=== PATIENT | male | born 1975 | race African-American/Black ===

== ENCOUNTER 2020-06-05 13:36 | Emergency (ER) | payer MEDICAID ==
[~2020-06-05] VITALS: Ht 172.7 cm; Wt 78.8 kg
[~2020-06-05 13:36] MED LIST: ALBU8.5H8
[2020-06-05] MEDS ORDERED: SODIUM CHLORIDE 0.9% 1,000 ML IV ONE (14:00)
[2020-06-05 14:35] LABS: BASOPHILS % (AUTO) 0.7 % (0.0-2.0); EOSINOPHILS % (AUTO) 1.5 % (1.0-6.0); HEMATOCRIT 28.7 % (41-53); HEMOGLOBIN 9.5 g/dL (13.5-17.5); LYMPHOCYTES # (AUTO) 2.7 K/uL (1.0-4.8); LYMPHOCYTES % (AUTO) 28.6 % (22.0-44.0); MEAN CORPUSCULAR HEMOGLOBIN 28.5 pg (26.0-34.0); MEAN CORPUSCULAR HGB CONC 33.2 G/dL (31.0-37.0); MEAN CORPUSCULAR VOLUME 86 fL (80-100); MONOCYTES # (AUTO) 0.9 K/uL (0.1-1.0); MONOCYTES % (AUTO) 9.7 % (2.0-9.0); NEUTROPHILS # (AUTO) 5.6 K/uL (1.8-7.7); NEUTROPHILS % (AUTO) 59.5 % (40.0-70.0); PLATELET COUNT (AUTO) 269 K/uL (150-450); RED BLOOD CELL COUNT(AUTO) 3.35 MIL/uL (4.50-5.90); RED CELL DISTRIBUTION WIDTH 15.2 % (11.5-14.5)
[2020-06-05 14:45] LABS: ANION GAP 10 mmol/L (8-16); CALCIUM, TOTAL 8.8 mg/dL (8.8-10.5); CARBON DIOXIDE 25 mmol/L (22-29); CHLORIDE 104 mmol/L (98-107); CREATININE 1.06 mg/dL (0.60-1.30); GLOMERULAR FILTR. RATE CALC > 60 mL/min (>60); GLUCOSE,RANDOM 123 mg/dL (70-110); POTASSIUM 3.7 mmol/L (3.5-5.1); SODIUM SERUM 139 mmol/L (136-145); UREA NITROGEN, BLOOD 15 mg/dL (7-18)
[2020-06-05 14:48] LABS: ALBUMIN 3.4 g/dL (3.4-5.0)
[2020-06-05 14:50] LABS: PROTHROMBIN TIME 10.5 SEC (9.4-11.6)
[2020-06-05 14:55] LABS: B-TYPE NATRIURETIC PEPTIDE 73 pg/mL (0-100)
[2020-06-05 14:59] LABS: AMMONIA 32 umol/L (11-32)
[2020-06-05 15:00] LABS: TROPONIN I < 0.02 ng/mL (0.00-0.05)
[2020-06-05 15:17] LABS: ALANINE AMINOTRANSFERASE 79 U/L (12-78); ALKALINE PHOSPHATASE 117 U/L (46-116); ASPARTATE AMINOTRANSFERASE 60 U/L (15-37); BILIRUBIN,TOTAL 0.7 mg/dL (0.1-1.0); CREATINE KINASE, TOTAL ONLY 169 U/L (39-308); LIPASE 186 U/L (73-393); TOTAL PROTEIN, SERUM 7.1 g/dL (6.4-8.2)
[2020-06-05 15:19] LABS: COVID AG,FIA SOURCE NASOPHARYNGEAL
[2020-06-05] MEDS ORDERED: IOVERSOL 350 MG/ML 100 ML VIAL ONE (16:53)
[2020-06-05] MEDS ORDERED: SODIUM CHLORIDE 0.9% 100 ML ONE (16:53)
[2020-06-05 17:35] LABS: APPEARANCE,URINE CLEAR (CLEAR); BILIRUBIN,URINE NEGATIVE (NEGATIVE); GLUCOSE, URINE (UA) NEGATIVE (NEGATIVE); KETONES,URINE NEGATIVE (NEGATIVE); LEUKOCYTE ESTERASE ,URINE NEGATIVE (NEGATIVE); NITRATE,URINE NEGATIVE (NEGATIVE); OCCULT BLOOD,URINE NEGATIVE (NEGATIVE); PH,URINE 7.5 (5.0-8.0); PROTEIN,URINE NEGATIVE (NEGATIVE)
[2020-06-05 17:41] LABS: AMPHET/METH SCREEN,URINE POSITIVE (NEGATIVE); BARBITURATE SCREEN, URINE NEGATIVE (NEGATIVE); BENZODIAZEPINES SCREEN,URINE NEGATIVE (NEGATIVE); CANNABINOID SCREEN,URINE NEGATIVE (NEGATIVE); COCAINE SCREEN,URINE NEGATIVE (NEGATIVE); METHADONE SCREEN, URINE NEGATIVE (NEGATIVE); OPIATE SCREEN,URINE NEGATIVE (NEGATIVE)
[2020-06-05 17:42] VITALS: BP 133/84
[2020-06-05 17:46] LABS: PHENCYCLIDINE SCREEN,URINE NEGATIVE (NEGATIVE)
== END 2020-06-05 19:07 | disposition left against medical advice (07) ==
LOC: EMS 13:36
DX: R04.2 Hemoptysis (principal); R91.1 Solitary pulmonary nodule; F12.90 Cannabis use, unspecified, uncomplicated; Z87.891 Personal history of nicotine dependence; Z20.822 Contact with and (suspected) exposure to COVID-19
CPT/HCPCS: 36415; 71045; 71260; 76700; 80053; 80307; 81003; 82140; 82550; 83690; 83880; 84484; 85025; 85610; 85730; 87426; 93005; 96360; 99285; G0480; J7030; J7050; Q9967